=== PATIENT | female | born 1985 | race Two or more races ===

== ENCOUNTER 2017-07-19 15:27 | Emergency (ER) | payer OTHER ==
[2017-07-19 15:32] VITALS: BP 128/93; PULSE 95; TEMP 97; BMI 21.2
[2017-07-19] MEDS ORDERED: KETOROLAC TROMETHAMINE 60 MG/2 ML VIAL IM ONE (16:21)
[2017-07-19] MEDS ORDERED: KETOROLAC TROMETHAMINE 60 MG/2 ML VIAL ONE (16:23)
--- NOTE | 2017-07-19 17:31 | PDOC ---
History of Present Illness - General Chief Complaint: Pain Stated Complaint: SOB, RT SHOULDER PAIN Time Seen by Provider: 07/19/17 16:11 History Source: Patient Exam Limitations: No Limitations (32y/o F with R shoulder pain and SOB X 3 days , denies CP, dizziness, truama, abd pain) Past History - Travel Close contact w/someone who was outside of country & ill: No - Past Medical History Allergies/Adverse Reactions: Allergies Allergy/AdvReac Type Severity Reaction Status Date / Time No Known Allergies Allergy Verified 07/19/17 15:32 Home Medications: Ambulatory Orders Naproxen 375 mg PO BID 14 Days #30 tablet 07/19/17 COPD: No - Suicide/Smoking/Psychosocial Hx Smoking History: Never smoked Review of Systems - Review of Systems Able to Perform ROS?: Yes Is the patient limited Syriac proficient: No Constitutional: No: Chills, Fever Respiratory: Yes: Shortness of Breath. No: Orthopnea, SOB at Rest, Wheezing, Productive cough Cardiac (ROS): No: Chest Pain ABD/GI: No: Abdominal Distended, Abd. Pain w/ defecation, Blood Streaked Bowels , Constipated, Difficulty Swallowing, Nausea, Abdominal cramping Musculoskeletal: Yes: Joint Pain (R shoulder), Joint Swelling. No: Back Pain, Muscle Pain, Muscle Weakness, Joint Stiffness Neurological: No: Headache, Numbness, Paresthesia, Tingling, Tremors, Weakness, Ataxia, Dizziness *Physical Exam - Vital Signs Last Vital Signs Temp Pulse Resp BP Pulse Ox 97 F L 95 H 18 128/93 99 07/19/17 15:30 07/19/17 15:30 07/19/17 15:30 07/19/17 15:30 07/19/17 15:30 - Physical Exam General Appearance: Yes: Nourished HEENT: positive: EOMI, [place] Neck: positive: Supple Respiratory/Chest: positive: Lungs Clear, Normal Breath Sounds Cardiovascular: positive: Regular Rhythm, Regular Rate, S1, S2 Gastrointestinal/Abdominal: positive: Flat Musculoskeletal: positive: Normal Inspection Extremity: positive: Normal Capillary Refill, Normal Inspection, Normal Range of Motion, Other (R shoulder: tenderness on rotation) Integumentary: positive: Normal Color Neurologic: positive: screwmaker automatic II-XII NML intact, Fully Oriented, Alert ED Treatment Course - RADIOLOGY Radiology Studies Ordered: Category Date Time Status CHEST PA & LAT [RAD] Stat Radiology 07/19/17 16:21 Taken SHOULDER-RIGHT [RAD] Stat Radiology 07/19/17 16:21 Taken - Medications Given in the ED: ED Medications Discontinued Medications Generic Name Dose Route Start Last Admin Trade Name Brendan PRN Reason Stop Dose Admin Ketorolac Tromethamine 60 mg 07/19/17 16:21 07/19/17 16:31 Toradol Injection - IM 07/19/17 16:22 60 mg ONCE ONE Administration Medical Decision Making - Medical Decision Making 07/19/17 17:42 32y/o F with R shoulder and SOB X 3 days, denies cough, CP, or abd pain. no trauma to shoulder xray ordered as pt is having R shoulder pain cxr toradol given Prelim xray neg, pt reassessed felt much better f/u with PCP for further evaluation 07/19/17 19:44 *DC/Admit/Observation/Transfer Diagnosis at time of Disposition: Shoulder pain, right Qualifiers: Chronicity: acute Qualified Code(s): M25.511 - Pain in right shoulder - Discharge Dispostion Disposition: HOME Condition at time of disposition: Good - Prescriptions Prescriptions: Naproxen 375 mg PO BID 14 Days #30 tablet - Referrals Referrals: Sonido Walsh MD [Primary Care Provider] - - Patient Instructions Printed Discharge Instructions: DI for Shoulder Pain Additional Instructions: I discussed the physical exam findings, ancillary test results and final diagnoses with the patient. I answered all of the patient's questions. The patient was satisfied with the care received and felt comfortable with the discharge plan and treatment plan. The patient will call their primary care physician within 24 hours to arrange follow-up and will return to the Emergency Department with any new, persistent or worsening symptoms. - Post Discharge Activity
== END 2017-07-19 18:14 | disposition home or self-care (01) ==
LOC: JERFT 15:27
PROC: 3E0233Z Introduction of Anti-inflammatory into Muscle, Percutaneous Approach (ICD-10-PCS; principal; 2017-07-19)
DX: M25.511 Pain in right shoulder (principal)
CPT/HCPCS: 71046-TC-FY; 73030-TC-RT-FY; 96372; 99281-25